=== PATIENT | male | born 1980 | race Caucasian/White ===

== ENCOUNTER 2019-01-25 18:43 | Outpatient (REF) | payer BC, SELFPAY ==
[2019-01-25 21:21] LABS: Calculated LDL 167 mg/dL; Cholesterol 280 mg/dL (<200); HDL Cholesterol 59 mg/dL (40-60); Triglyceride 273 mg/dL (<150)
== END 2019-01-25 19:03 ==
LOC: NCHCN 18:43
PROVIDERS: Visit Provider Internal Medicine
DX: Z00.00 Encounter for general adult medical examination without abnormal findings (principal); Z13.220 Encounter for screening for lipoid disorders
CPT/HCPCS: 80061

== ENCOUNTER 2022-12-16 21:00 | Outpatient (REF) | payer OTHER, SELFPAY ==
[2022-12-16 20:20] LABS: ESR 9 mm/hr (0-15)
[2022-12-16 20:25] LABS: Anion Gap 7.8 mmol/L (3-11); BUN 11 mg/dL (7-18); C-Reactive Protein 3.57 mg/dL (0.0-0.3); CO2 30.2 mmol/L (21.0-32.0); CREATININE 1.2 mg/dL (0.70-1.30); Calcium 9.3 mg/dL (8.5-10.1); Chloride 99 mmol/L (98-107); Estimated GFR 77.43 (mL/min/1.73m2); Glucose 103 mg/dL (74-106); Potassium 4.3 mmol/L (3.5-5.1); Sodium 137 mmol/L (136-145); Uric Acid 5.7 mg/dL (3.5-7.2)
== END 2022-12-16 21:01 | disposition home or self-care (01) ==
LOC: NCHCN 21:00
PROVIDERS: Visit Provider Physician Assistant
DX: M79.672 Pain in left foot (principal)
CPT/HCPCS: 80048; 85652; 84550; 86140

== ENCOUNTER → 2022-12-18 00:58 | Outpatient (CLI) | payer OTHER, SELFPAY ==
--- NOTE | 2022-12-18 | DI.RAD_ITS ---
Exam(s) XR FOOT LT COMPLETE EXAM: XR FOOT LT COMPLETE CLINICAL HISTORY: LT FOOT PAIN, SWELLING, M79.672. TECHNIQUE: 2D digital imaging was performed. Three views. COMPARISON: No exams were available for comparison FINDINGS: BONES: No acute fracture is present. No bony destructive lesion is seen. JOINTS: No dislocation present. SOFT TISSUE: Normal. IMPRESSION: Unremarkable radiographs of the left foot. DATA REPOSITORY: RADIATION DOSE DELIVERED:
== END ==
PROVIDERS: Visit Provider Physician Assistant
DX: M79.672 Pain in left foot (principal)
CPT/HCPCS: 73630

== ENCOUNTER 2024-10-17 16:08 | Outpatient (REF) | payer OTHER, SELFPAY ==
[2024-10-17 19:17] LABS: Abs Immature Grans 0.02 10^3/uL (0.0-0.06); HCT 45.9 % (40.0-50.0); HGB 16.1 g/dL (13.5-17.5); Immature Grans % 0.3 %; MCH 31.5 pg (27.0-33.0); MCHC 35.1 % (32.0-36.0); MCV 90 fL (80-95); MPV 9.3 fL (8.0-11.0); Platelet Count 233 10^3/uL (130-400); RBC 5.11 10^6/uL (4.36-5.78); RDW 11.4 % (11.8-14.1); RDW-SD 37.9 fL; WBC 7.68 10^3/uL (4.4-10.8)
[2024-10-17 19:34] LABS: Iron 125 ug/dL (65-175); Total Iron Binding Capacity 278 ug/dL (250-450); Transferrin Sat 45 % (20-55)
[2024-10-17 19:50] LABS: ALT 41 U/L (16-63); AST 34 U/L (15-37); Albumin 4.1 g/dL (3.4-5.0); Alkaline Phosphatase 63 U/L (46-116); Anion Gap 8.1 mmol/L (3-11); BUN 20 mg/dL (7-18); Bilirubin, Total 0.6 mg/dL (0.2-1.0); CO2 28.9 mmol/L (21.0-32.0); Calcium 8.8 mg/dL (8.5-10.1); Chloride 101 mmol/L (98-107); Estimated GFR 69.90 (mL/min/1.73m2); Ferritin 261 ng/mL (26-388); Glucose 95 mg/dL (74-106); Potassium 3.7 mmol/L (3.5-5.1); Sodium 138 mmol/L (136-145); TSH (W/Ref FT4) 1.04 uIU/mL (0.36-3.74); Total Protein 7.3 g/dL (6.4-8.2); Vitamin D 25 Total 26 ng/mL (30-100)
[2024-10-20 20:48] LABS: B. miyamotoi PCR Negative (Negative); Babesia divergens/MO-1 Negative (Negative); Ehrlichia muris eauclairensis Negative (Negative)
== END 2024-10-17 16:09 | disposition home or self-care (01) ==
LOC: NCHCN 16:08
PROVIDERS: PCP Physician Assistant; Visit Provider Physician Assistant
DX: R53.83 Other fatigue (principal)
CPT/HCPCS: 80053; 82306; 87798; 82728; 83540; 83550; 84443; 85025

== ENCOUNTER 2024-10-27 16:15 | Outpatient (REF) | payer OTHER, SELFPAY ==
[2024-10-30 11:17] LABS: Lyme Ab w Rflx to Lyme Confirm Negative (Negative)
== END 2024-10-27 16:16 | disposition home or self-care (01) ==
LOC: NCHCN 16:15
PROVIDERS: PCP Physician Assistant; Visit Provider Internal Medicine
DX: R53.83 Other fatigue (principal)
CPT/HCPCS: 86618